=== PATIENT | female | born 1955 | race Caucasian/White ===

== ENCOUNTER → 2018-04-20 | Outpatient (CLI) | payer BC | END | disposition home or self-care (01) | LOC: HKI 15:30 | DX: M25.511 Pain in right shoulder (principal) | CPT/HCPCS: 73030; 73030-RT ==

== ENCOUNTER → 2018-06-08 | Outpatient (CLI) | payer BC | END | disposition home or self-care (01) | LOC: HKI 15:03 | DX: M75.101 Unspecified rotator cuff tear or rupture of right shoulder, not specified as traumatic (principal) | CPT/HCPCS: Z7500 ==

== ENCOUNTER → 2018-06-29 | Outpatient (CLI) | payer BC | END | disposition home or self-care (01) | LOC: HKI 14:27 | DX: M75.101 Unspecified rotator cuff tear or rupture of right shoulder, not specified as traumatic (principal) | CPT/HCPCS: 20610 ==